=== PATIENT | male | born 1950 | race Two or more races ===

== ENCOUNTER 2019-11-27 00:55 | Inpatient (IN) | payer OTHER ==
[~2019-11-27] VITALS: Ht 165.1 cm; Wt 80.5 kg
[2019-11-27 03:05] LABS: Basophils # (auto) 0.2 10 ^3/uL (0-0.2); Basophils % (auto) 1.9 % (0.0-2.0); Eosinophils # (auto) 0.2 10 ^3/uL (0-0.8); Eosinophils % (auto) 2.5 % (0.0-7.0); Hematocrit 44.7 % (41.0-53.0); Hemoglobin 15.3 g/dL (13.5-17.5); Lymphocytes # (auto) 3.2 10 ^3/uL (0.4-5.4); Lymphocytes % (auto) 35.8 % (10.0-50.0); Mean Corpuscular Hgb Conc. 34.2 g/dL (32.0-36.0); Mean Corpuscular Volume 90.6 fL (80.0-100.0); Monocytes # (auto) 0.7 10 ^3/uL (0-1.3); Monocytes % (auto) 8.2 % (0.0-12.0); Neutrophils # (auto) 4.6 10 ^3/uL (1.6-8.6); Neutrophils % (auto) 51.6 % (37.0-80.0); Platelet Count (auto) 327 10^3/uL (140-450); Red Blood Cells 4.94 10^6/uL (4.5-5.90); Red Cell Distribution Width 13.2 % (11.8-14.3)
[2019-11-27 03:20] LABS: INR 0.94 (0.9-1.15); Partial Thromboplastin Time 25.9 sec (23.0-31.2)
[2019-11-27 03:25] LABS: Albumin 3.3 g/dL (3.4-5.0); Calcium 8.8 mg/dL (8.5-10.1); Magnesium 2.6 mg/dL (1.6-2.6)
[2019-11-27 03:30] LABS: BUN/Creatinine Ratio 24.7; Bilirubin, Total 0.4 mg/dL (0.2-1.0); Total Protein 7.7 g/dL (6.4-8.2)
[2019-11-27] MEDS ORDERED: ASPirin 81 mg TAB PO ONE (04:15)
[2019-11-27] MEDS ORDERED: ACETAMINOPHEN 325 MG TAB PO PRN (05:30)
[2019-11-27] MEDS ORDERED: ONDANSETRON HCL 4 MG/2 ML VIAL IV PRN (05:30)
[2019-11-27] MEDS ORDERED: LEVOTHYROXINE SODIUM 50 MCG TAB PO ONE (05:30)
[2019-11-27] MEDS ORDERED: NITROGLYCERIN 0.4 MG SL TAB SL PRN (05:30)
[2019-11-27] MEDS ORDERED: TEMAZEPAM 15 MG CAP PO PRN (05:30)
[2019-11-27] MEDS ORDERED: MORPHINE SULF INJ 2 MG/ML SYRINGE 1ML IV PRN (05:30)
[2019-11-27] MEDS ORDERED: LEVOTHYROXINE SODIUM 25 MCG TAB PO SCH (07:00)
--- NOTE | 2019-11-27 08:40 | NUR ---
Received Patient from ER Report was called and the patient was transport by wheelchair from the ER. Patient is alert and oriented, no S/S of respiratory distress or complaints of chest pain at this time. Safety measure in place and the call light within reach of the patient.
[2019-11-27 08:42] VITALS: BP 145/93
[2019-11-27 09:26] VITALS: BP 145/93
[2019-11-27] MEDS ORDERED: LISINOPRIL 20 MG TAB PO SCH (10:00)
[2019-11-27] MEDS ORDERED: METOPROLOL SUCCINATE XL 50 MG TAB PO SCH (10:00)
[2019-11-27] MEDS ORDERED: ASPirin 81 mg TAB PO SCH (10:00)
[2019-11-27] MEDS ORDERED: PANTOPRAZOLE 40 MG TAB PO SCH (10:00)
[2019-11-27] MEDS ORDERED: HCTZ 25 MG TAB PO SCH (10:00)
[2019-11-27] MEDS ORDERED: SODIUM CHLORIDE 0.9% 1,000 ML IV SCH (10:45)
--- NOTE | 2019-11-27 10:45 | NUR ---
Dr. Narayanan at bedside Dr. Narayanan at bedside assessing and discussing the POC with the patient. Patient notified that Dr. Gómez was consulted and would come by to see the patient. Transfer paperwork was signed by Dr. Narayanan in case the patient needs to be transferred to [place] for a heart cath. Patient verbalized understanding. Awaiting results from echo and consultation from cardiology.
[2019-11-27] MEDS ORDERED: AMLO10TA13 PO (11:25)
[2019-11-27] MEDS ORDERED: METO-169 PO (11:25)
[2019-11-27] MEDS ORDERED: LISI-707 PO (11:25)
--- NOTE | 2019-11-27 11:55 | NUR ---
Echo at bedside microbiology lab technician at bedside. Patient is comfortable and tolerating procedure well.
[2019-11-27 13:00] VITALS: BP 145/80
--- NOTE | 2019-11-27 14:05 | NUR ---
Dr. Gómez at bedside Dr. Gómez at bedside assessing the patient and discussing the POC. Doctor states he will discuss the patient's transfer with Dr. Narayanan. Patient verbalized understanding on his transfer to [facility].
--- NOTE | 2019-11-27 14:24 | NUR ---
Dr Adolph PENA updated on POC of pt. Plans to transfer pt to [facility] for needed LHC. requests that face-sheet be faxed to [facility] [phone]. stated he would place the orders. Will implement and continue to monitor.
[2019-11-27] MEDS: hydrALAZINE HCL 25 MG TAB PO SCH ×2 (15:21→17:50)
[2019-11-27 17:11] VITALS: BP 150/79
--- NOTE | 2019-11-27 20:06 | NUR ---
CALL FROM , PATIENT HAS A BED AT [facility]. PATIENT GOING TO BED 196B. ACCEPTING PHYSICIAN.
--- NOTE | 2019-11-27 20:08 | NUR ---
MEDICAL DATA ENTRY CLERK (MYLES) SPOKE TO MARKIE MEDICAL DATA ENTRY CLERK. PATIENT IS GOING TO ROOM 196B TELEMETRY FLOOR AT [facility]. CALL REPORT AT [phone] EXT [phone]. ACCEPTING PHYSICIAN: DR. VELÁSQUEZ. MARKIE WILL SET UP [facility] TRANSPORT FOR PATIENT.
--- NOTE | 2019-11-27 20:18 | NUR ---
JIM ETA CALL RECEIVED FROM MARKIE CONTINUOUS IMPROVEMENT SPECIALIST. PER MARKIE FERNANDEZ TRANSPORT IS SET UP WITH ETA OF 2200. INFORMED PATIENT OF BED NUMBER AND ETA FOR TRANSPORT. HE VERBALIZED UNDERSTANDING.
--- NOTE | 2019-11-27 20:24 | NUR ---
FAMILY NOTIFIED OF TRANSPORT. INFORMED TOMMY(NOK) OF PENDING TRANSFER AND ROOM NUMBER AT THE REQUEST OF PATIENT. ALL QUESTIONS AND CONCERNS ADDRESSED. JACQUES NERI TRANSLATED PLAN OF CARE.
--- NOTE | 2019-11-27 21:00 | NUR ---
REPORT CALLED REPORT TO KAYLEE NERI AT [facility]. [phone] EXT [phone]. ALL QUESTIONS AND CONCERNS ADDRESSED.
[2019-11-27 22:00] VITALS: BP 156/78
[2019-11-27] MEDS ORDERED: ATORVASTATIN 20 MG TAB PO SCH (22:00)
--- NOTE | 2019-11-27 22:25 | NUR ---
Pt being trans to another hosp Order obtained for transfer of ZACHARY ALEMAN to [facility]. Report called to Nimisha NERI. Report given to EMS transport team. Medication reconciliation form completed and copy given to patient. Transported via gurney along with copied chart and imaging films/disk and all personal belongings. No distress noted on time of departure. Family notified of destination and room number, verbalized understanding.
== END 2019-11-27 22:25 | disposition short-term general hospital (02) | DRG 281 ==
LOC: ER 00:58 → TELE 00:59 → TELE-WESTW 08:42
PROVIDERS: ADMIT Nurse Practitioner; ATTEND Internal Medicine Geriatric Medicine
DX: I21.4 Non-ST elevation (NSTEMI) myocardial infarction (principal); E44.0 Moderate protein-calorie malnutrition; I12.9 Hypertensive chronic kidney disease with stage 1 through stage 4 chronic kidney disease, or unspecified chronic kidney disease; I35.0 Nonrheumatic aortic (valve) stenosis; N18.30 Chronic kidney disease, stage 3 unspecified; E03.9 Hypothyroidism, unspecified; E78.5 Hyperlipidemia, unspecified; I20.0 Unstable angina; E11.9 Type 2 diabetes mellitus without complications; R06.02 Shortness of breath; R53.1 Weakness; Z20.828 Contact with and (suspected) exposure to other viral communicable diseases; Z90.49 Acquired absence of other specified parts of digestive tract; Z87.891 Personal history of nicotine dependence; Z68.29 Body mass index [BMI] 29.0-29.9, adult
CPT/HCPCS: 36415; 71045; 80053; 83735; 83880; 84443; 84484; 85025; 85379; 85610; 85730; 87426; 93005; 93306; 96360; G0378